=== PATIENT | male | born 1995 | race Caucasian/White ===

== ENCOUNTER 2017-02-11 16:13 | Emergency (ER) | payer BC ==
[2017-02-11 16:30] VITALS: TEMP 98.6
--- NOTE | 2017-02-11 16:38 | EDPHY ---
H & P Stated Complaint: Sore Throat, Fever Time Seen by Provider: 02/11/17 16:38 - Medical/Surgical History Other PMH: N/A Constitutional: Initial Vital Signs Temperature (C) 37.0 C 02/11/17 16:27 Heart Rate 82 02/11/17 16:27 Respiratory Rate 13 02/11/17 16:27 Blood Pressure 123/78 H 02/11/17 16:27 O2 Sat (%) 97 02/11/17 16:27 O2 Delivery Mode Room Air Allergies/Adverse Reactions: No Known Allergies Allergy (Unverified 02/11/17 16:24) Home Medications: Medication Instructions Recorded Albuterol [Proventil Inhaler] 1 - 2 puffs IH Q4 #1 mdi 02/11/17 Ibuprofen [Motrin] 800 mg PO Q8 #20 tab 02/11/17 Medical Decision Making ED Course/Re-evaluation: CHIEF COMPLAINT: HISTORY OF PRESENT ILLNESS: must have 4 elements: Location, Quality, Severity , Duration, Timing, Context, Modifying Factors, Associated Signs and Symptoms This is a 21 year old male arriving today complaining of persistent fever, cough , and headaches for the last three days. He states his ears were popping yesterday. Fever for three days, haven't been feeling a alot better. Cough, pretty bad headaches, dehydration, but trying to stay hydrated. REVIEW OF SYSTEMS: A 10 point review of systems was performed and is negative with the exception of the elements mentioned in the history of present illness. PHYSICAL EXAM: HR, BP, O2 Sat, RR. Temp noted General Appearance: Alert, well hydrated, appropriate, and non-toxic appearing. Head: Atraumatic without scalp tenderness or obvious injury Eyes: Pupils equal, round, reactive to light and accommodation, EOMI, no trauma , no injection. Ears: Clear bilaterally, no perforation, normal landmarks Nose: Atraumatic, no rhinorrhea, clear. Throat: There is erythema. No purulence or exudates, no lesions, normal tonsils, mucus membranes moist. Neck: Supple, 2+ carotid upstroke, nontender, no lymphadenopathy. Respiratory: No retractions, no distress, no wheezes, and no accessory muscle use. Lungs are clear to auscultation bilaterally. Cardiovascular: Regular rate and rhythm, no murmurs, rubs, or gallops. Bilateral carotid, radial, dorsalis pedis, and posterior tibial pulses intact. Good capillary refill all extremities. Gastrointestinal: Abdomen is soft, nontender, non-distended, no masses, no rebound, no guarding, no peritoneal signs. Musculoskeletal: Normal active ROM of all extremities, atraumatic. Neurological: Alert, appropriate, and interactive. The patient has normal DTRs and non-focal cranial nerves, motor, sensory, and cerebellar exam. Skin: No rashes, good turgor, no nodules on palpation. Past medical history: Past surgical history: Family history: Social history: DIAGNOSTICS/PROCEDURES/CRITICAL CARE TIME: DIFFERENTIAL DIAGNOSIS: MEDICAL DECISION MAKING: Departure - Departure Disposition: Home, Routine, Self-Care Clinical Impression: Viral syndrome Condition: Good Instructions: Viral Syndrome (ED) Additional Instructions: 1. Take Acetaminophen as directed on the packaging for pain and fever control. 2. Use your Albuterol inhaler as prescribed for cough. 3. Follow up with a primary care provider for symptoms unresolved or worsening in the next 7-10 days. We have referred you to our primary care provider personnel supervisor , but you may follow up with your regular PCP. 4. Return to the ED for severe fever, difficulty breathing, or other worsening of condition. Referrals: NONE *PRIMARY CARE P,. [Primary Care Provider] - As per Instructions Sy Lopez MD [Medical Doctor] - As per Instructions Prescriptions: Albuterol [Proventil Inhaler] 1 - 2 puffs IH Q4 #1 mdi Ibuprofen [Motrin] 800 mg PO Q8 #20 tab Report Scribed for: Baltazar Marshall Report Scribed by: Kimberly Olmos Date of Report: 02/11/17 Time of Report: 16:56
[2017-02-11 17:22] VITALS: BP 121/77; PULSE 68; RESP 16; O2SAT 96
== END 2017-02-11 17:21 | disposition home or self-care (01) ==
LOC: CED 16:13
DX: B34.9 Viral infection, unspecified (principal)